=== PATIENT | female | born 1995 | race Caucasian/White ===

== ENCOUNTER 2017-08-07 15:16 | Emergency (ER) | payer MEDICAID, OTHER ==
[~2017-08-07] VITALS: Ht 170.2 cm; Wt 104.3 kg
[2017-08-07 15:16] VITALS: BP 147/81
--- NOTE | 2017-08-07 17:07 | NUR ---
CALLED XRAY TWICE FOR F/U
== END 2017-08-07 18:05 | disposition home or self-care (01) ==
LOC: ER 15:20
DX: M25.562 Pain in left knee (principal)
CPT/HCPCS: 73564-TC; A4606; Z7610